=== PATIENT | male | born 1955 | race Caucasian/White ===

== ENCOUNTER → 2017-07-20 | Day surgery (SDC) | payer OTHER ==
[2017-07-14 14:25] VITALS: BMI 29.5
[~2017-07-20] MED LIST: BUPIVACAINE (PF) 0.25% 30 ML VIAL SQ ONE; DEXAMETHASONE SOD PHOSPHATE 10 MG/ML 1 ML VIAL IV ONE; GLYCOPYRROLATE 0.2 MG/ML 2 ML VIAL ONE; HEPARIN SODIUM,PORCINE 5,000 UNIT/ML 1 ML VIAL SQ ONE; HYDROcodone/APAP 5-325MG 1 EACH TAB PO ONE; HYDROcodone/APAP 5-325MG 1 EACH TAB PO PRN; LACTATED RINGERS 1,000 ML IV ONE; LACTATED RINGERS 1,000 ML IV SCH; LIDOCAINE 1% 20 ML VIAL (10MG/ML) FOR IV START INTRADERMA PRN; LIDOCAINE 1% INJ 10MG/ML (20 ML MDV) ONE; MEPERIDINE 50 MG/ML SYRINGE IVP ONE; MIDAZOLAM 2 MG/2 ML VIAL IVP ONE; MIDAZOLAM 2 MG/2 ML VIAL ONE; NALOXONE 0.4 MG/ML 1 ML VIAL IV PRN; NEOSTIGMINE 1 MG/ML 10 ML VIAL ONE; ONDANSETRON 4 MG/2 ML VIAL IVP ONE; PROPOFOL 10 MG/ML 20 ML VIAL IV ONE; ROCURONIUM BROMIDE 10 MG/ML 10 ML VIAL IV ONE; SCOPOLAMINE 1.5MG/72HR PATCH TRANSDERM ONE; SUCCINYLCHOLINE CHLORIDE 100 MG/5 ML SYR IV ONE; ceFAZolin IN SWFI 2 GM/20 ML SYRINGE IVP ONE; ePHEDrine SULFATE/0.9% NACL/PF 50 MG/5 ML SYRINGE IV ONE; fentaNYL (PF) 50 MCG/ML 2 ML AMP ONE
--- NOTE | 2017-07-20 12:27 | P.OP ---
Date of Procedure: 07/20/17 Procedure(s) Performed: PREOPERATIVE DIAGNOSIS: Right inguinal hernia POSTOPERATIVE DIAGNOSIS: Same PROCEDURE: Laparoscopic repair right inguinal hernia with the [place] robot assistance with mesh SURGEON: Kaia EBL: Minimal ANESTHESIA: General COMPLICATIONS: None OPERATIVE PROCEDURE: Patient was placed in the operating table in the supine position. The patient was placed under general anesthesia. The patient was then placed in lithotomy. The abdomen was prepped and draped in usual sterile fashion. A small curvilinear supraumbilical incision was made. The fascia was retracted anteriorly with [place] forceps. The Veress needle was inserted. The saline drop test was normal. Insufflation took place to 15 mmHg. A 12 mm trocar was then inserted. 2 additional 8 mm trochars were placed in the right upper quadrant and left upper quadrant under visualization. The robotic arms were then brought in and docked into place. The fenestrated bipolar was used in the left arm and the laparoscopic vane was utilized in the right arm. A 30 12 mm scope was used in the up position. The peritoneal cavity was inspected. There was no evidence of left inguinal hernia. The right inguinal hernia was direct in nature. The peritoneum was incised in a horizontal fashion cephalad to the internal inguinal ring. Following that careful dissection of the preperitoneal space took place. This took place using both electrocautery, sharp dissection but primarily blunt dissection. Visualization of the pubic tubercle and Bruno's ligament took place medially. Full dissection took place laterally as well. The patient's hernia was a direct hernia with a diameter of approximately 1.5-2 cm. The hernia sac was fully dissected. Once we had adequate space the 15 x 10 progrip mesh was advanced into the preperitoneal space and flattened out appropriately to cover all potential hernia sites. No sutures were used. The peritoneal defect was then closed using a locking 2-0 VLok suture. The pneumoperitoneum was then evacuated. The fascia at the 12 mm site was closed using the Marques Vargas technique and an 0 Vicryl stitch. The skin of all 3 sites was closed using a 4- 0 Monocryl stitch. Steri-Strips and sterile dressings were applied. DISPOSITION: Stable to recovery room
[2017-07-20] MEDS: HYDROmorphone 0.5 MG/0.5 ML SYRINGE IVP PRN ×4 (12:30→12:58)
[2017-07-20 12:32] VITALS: TEMP 97
[2017-07-20 13:37] VITALS: RESP 16
[2017-07-20 15:38] VITALS: BP 130/80; PULSE 76
== END ==
LOC: OR 08:59
PROVIDERS: ATTEND Surgery
DX: K40.90 Unilateral inguinal hernia, without obstruction or gangrene, not specified as recurrent (principal); K21.9 Gastro-esophageal reflux disease without esophagitis; I10 Essential (primary) hypertension; M10.9 Gout, unspecified; Z79.899 Other long term (current) drug therapy
CPT/HCPCS: 49650; S2900

== ENCOUNTER 2017-07-22 07:53 | Emergency (ER) | payer OTHER ==
[2017-07-22 08:00] VITALS: RESP 16; TEMP 98
[2017-07-22] MEDS ORDERED: MORPHINE SULFATE 2 MG/ML SYRINGE IVP ONE (08:22)
[2017-07-22] MEDS ORDERED: SODIUM CHLORIDE 0.9% 1,000 ML IV STA ×2 (08:22)
[2017-07-22] MEDS ORDERED: DICYCLOMINE 10 MG/ML 2 ML AMP IM STA (08:22)
[2017-07-22] MEDS ORDERED: SENNOSIDES-DOCUSATE SODIUM 1 EACH TAB PO STA (08:22)
[2017-07-22] MEDS ORDERED: SODIUM CHLORIDE 0.9% 500 ML IV STA (08:22)
[2017-07-22] MEDS ORDERED: GLYCERIN ADULT SUPPOSITORY 1 EACH RECTAL STA (08:22)
[2017-07-22] MEDS ORDERED: MAGNESIUM CITRATE 296 ML BOTTLE PO ONE (08:22)
--- NOTE | 2017-07-22 08:50 | XR ---
EXAMINATION TYPE: XR abdomen acute w cxr DATE OF EXAM: 07/22/2017 COMPARISON: Prior CT from outside institution, 07/22/2017 HISTORY: Abdominal pain and distention TECHNIQUE: Frontal chest x-ray, 3 views of the abdomen submitted. FINDINGS: There are multiple air-fluid levels present within the abdomen. Some air-filled loops of small and la rge bowel are noted. No evident pneumoperitoneum. Surgical clips are present in the right hemiabdomen . Metallic densities in the right hemiabdomen may be due to bowel content. Lucency is present over th e right groin compatible with postop state. Chest shows no acute cardiopulmonary disease. Phleboliths present in the right hemipelvis. Vascular calcifications are noted incidentally. IMPRESSION: Findings may represent a postoperative ileus. Follow-up is recommended.
--- NOTE | 2017-07-22 08:52 | ED ---
General Adult HPI - General Chief complaint: Abdominal Pain Stated complaint: Abd.pain Time Seen by Provider: 07/22/17 08:10 Source: patient, EMS, RN notes reviewed, old records reviewed Mode of arrival: EMS Limitations: no limitations - History of Present Illness Initial comments: This is a 62-year-old male to the ER for evaluation of dog pain. Patient severe abdominal pain and cramping yesterday found him to go to the emergency room. Patient's transfer patient can see hospital, 2 days postop of a hernia repair. Patient had surgery here at this hospital. Patient has had decreased appetite he states he is taking water but has no bowel output, no stool, no flatulence. Patient denies fever. Abdominal pain is consistent significant and crampy, it is improved now at this time pain control - Related Data Home Medications Medication Instructions Recorded Confirmed Allopurinol [Zyloprim] 300 mg PO QAM 07/14/17 07/22/17 Hydrochlorothiazide 25 mg PO QAM 07/14/17 07/22/17 Metoprolol Tartrate [Lopressor] 100 mg PO QAM 07/14/17 07/22/17 Calcium 500mg 1,000 mg PO DAILY 07/22/17 07/22/17 Hydrocodone/Acetaminophen [[place] 1 - 2 tab PO Q4HR PRN 07/22/17 07/22/17 5-325] Allergies Allergy/AdvReac Type Severity Reaction Status Date / Time No Known Allergies Allergy Verified 07/22/17 08:22 Review of Systems ROS Statement: Those systems with pertinent positive or pertinent negative responses have been documented in the HPI. ROS Other: All systems not noted in ROS Statement are negative. Past Medical History Past Medical History: Hypertension, Osteoarthritis (OA) Additional Past Medical History / Comment(s): hemochromatosis History of Any Multi-Drug Resistant Organisms: None Reported Past Surgical History: Appendectomy, Back Surgery, Orthopedic Surgery Additional Past Surgical History / Comment(s): one para thyroid out, Lt knee scope, wrist and carpel tunnel right side Past Anesthesia/Blood Transfusion Reactions: No Reported Reaction Past Psychological History: No Psychological Hx Reported Smoking Status: Former smoker - Past Family History Mother Family Medical History: Cancer Additional Family Medical History / Comment(s): breast General Exam Limitations: no limitations General appearance: alert, in no apparent distress Head exam: Present: atraumatic, normocephalic, normal inspection Eye exam: Present: normal appearance, PERRL, EOMI. Absent: scleral icterus, conjunctival injection, periorbital swelling ENT exam: Present: normal exam, mucous membranes moist Neck exam: Present: normal inspection. Absent: tenderness, meningismus, lymphadenopathy Respiratory exam: Present: normal lung sounds bilaterally. Absent: respiratory distress, wheezes, rales, rhonchi, stridor Cardiovascular Exam: Present: regular rate, normal rhythm, normal heart sounds. Absent: systolic murmur, diastolic murmur, rubs, gallop, clicks GI/Abdominal exam: Present: soft, normal bowel sounds. Absent: distended, tenderness, guarding, rebound, rigid Extremities exam: Present: normal inspection, full ROM, normal capillary refill. Absent: tenderness, pedal edema, joint swelling, calf tenderness Back exam: Present: normal inspection Neurological exam: Present: alert, oriented X3, CN II-XII intact Psychiatric exam: Present: normal affect, normal mood Skin exam: Present: warm, dry, intact, normal color. Absent: rash Course Vital Signs 07/22/17 07:56 Temperature 98 F Pulse Rate 72 Respiratory 16 Rate Blood Pressure 165/94 O2 Sat by Pulse 95 Oximetry - Reevaluation(s) Reevaluation #1: 07/22/17 08:50 Mr. paperwork is thoroughly reviewed including CT and lab work Reevaluation #2: 07/22/17 08:51 Patient given significant bowel regimen here in emergency room Reevaluation #3: 07/22/17 09:05 Patient had significant bowel movement here in the emergency room, currently no pain Disposition Clinical Impression: Abdominal pain, Constipation Disposition: HOME SELF-CARE Condition: Good Instructions: Constipation (ED) Referrals: Mary Ann Cueto MD [Primary Care Provider] - 1-2 days
[2017-07-22 09:31] VITALS: BP 165/96; PULSE 74
== END 2017-07-22 09:30 | disposition home or self-care (01) ==
LOC: EC 07:53
DX: K59.00 Constipation, unspecified (principal); R10.9 Unspecified abdominal pain; I10 Essential (primary) hypertension; Z90.49 Acquired absence of other specified parts of digestive tract; Z87.891 Personal history of nicotine dependence; Z53.20 Procedure and treatment not carried out because of patient's decision for unspecified reasons; Z79.899 Other long term (current) drug therapy
CPT/HCPCS: 74022; 99284